=== PATIENT | male | born 1955 | race Caucasian/White ===

== ENCOUNTER 2017-09-10 17:57 | Inpatient (IN) | payer SELFPAY ==
[2017-09-10 18:59] LABS: #Lymphocytes 0.5 thou/uL (1.20-3.40); #Monocytes 0.8 thou/uL (0.11-0.59); #Neutrophils 15.5 thou/uL (1.40-6.50); %Basophils 0.1 % (0.0-1.0); %Eosinophils 0.2 % (0.0-10.0); %Lymphocytes 3.2 % (21.0-51.0); %Monocytes 4.9 % (0.0-10.0); %Neutrophils 91.6 % (42.0-75.0); Hemoglobin 11.5 g/dL (14.0-18.0); Mean Corpuscular HGB CONC 35.6 g/dL (32.0-36.0); Mean Corpuscular Hemoglobin 33.7 pg (27.0-31.0); Mean Corpuscular Volume 94.7 fl (80.0-94.0); Platelet Count 173 thou/uL (130-400); RBC Distribution Width 10.6 % (11.5-14.5)
[2017-09-10 19:20] LABS: ALT (SGPT) 15 U/L (8-55); AST (SGOT) 19 U/L (5-34); Albumin 4.6 g/dL (3.4-4.8); Alkaline Phosphatase 53 U/L (40-150); Anion Gap 21 mmol/L (10-20); BUN (Urea Nitrogen) 21 mg/dL (8.4-25.7); Bilirubin, Total 1.1 mg/dL (0.2-1.2); Calc. Creatinine Clearance 0 mL/min (70-130); Calcium 9.3 mg/dL (7.8-10.44); Carbon Dioxide 18 mmol/L (23-31); Chloride 103 mmol/L (98-107); Estimated GFR-MDRD 61; Globulin 3.2 g/dL (2.4-3.5); Glucose 319 mg/dL (80-115); Potassium 4.2 mmol/L (3.5-5.1); Protein, Total 7.8 g/dL (5.8-8.1); Sodium 138 mmol/L (136-145)
[2017-09-10] MEDS ORDERED: Thiamine HCl 200 MG/2 ML VIAL SLOW IVP SCH (20:00)
[2017-09-10] MEDS ORDERED: Dextrose 5% in Water 1,000 ML IV PRN (20:10)
[2017-09-10] MEDS ORDERED: Dextrose 50% Abboject 50 ML SYRINGE SLOW IVP PRN (20:10)
[2017-09-10] MEDS ORDERED: cefTRIAXone Sodium 1 MG in Syringe 0 ML IVPB SCH (20:15)
[2017-09-10 20:19] LABS: Lactic Acid 1.4 mmol/L (0.5-2.2)
[2017-09-10] MEDS ORDERED: Lorazepam 2 MG/ML VIAL SLOW IVP PRN (20:32)
[2017-09-10 20:37] LABS: Hemoglobin 10.9 g/dL (14.0-18.0)
[2017-09-10] MEDS ORDERED: Promethazine HCl 25 MG/ML VIAL ONE (20:45)
[2017-09-10] MEDS ORDERED: Insulin Detemir 100 UNITS/ML 15 UNITS SC SCH ×2 (21:00)
--- NOTE | 2017-09-10 21:01 | RAD ---
SINGLE VIEW OF THE CHEST: Comparison: 04-30-12 History: Cough ground emesis and weakness. FINDINGS: Single view of the chest shows a normal sized cardiomediastinal silhouette. There is no evidence of c onsolidation, mass, or pleural effusion. The bones are unremarkable. IMPRESSION: No evidence of acute cardiopulmonary disease. POS: [facility]
--- NOTE | 2017-09-10 21:48 | HP ---
PRIMARY CARE PHYSICIAN: This patient has no PCP. CHIEF COMPLAINT: Weakness. HISTORY OF PRESENT ILLNESS: The patient is a very pleasant 62-year-old male, who was transferred from another hospital for possible GI bleed. The history was obtained mildly from the patient and rest from the patient's family. The patient's family stated that the patient has been feeling weak for the past day and had severe nausea, vomiting, and about six bouts of diarrhea yesterday. The patient also stated that he ran out of his insulin Lantus for the past two days. The patient stated that he has been taking his short-acting insulin; however, has not been taking his long-acting insulin. The patient denies eating out anywhere. He states that he takes Aleve at times; however, he has not taken any recently. The patient also was found to have coffee ground emesis , this is per documentation from the ER notes at the outside hospital. The patient does have a history of alcohol use, drinks about 6-7 beers daily. He denies any withdrawal ever in the past. Denies any known diagnosis of cirrhosis or any liver complications due to his drinking. The patient denies any fevers or chills; however, just has been feeling really weak all over. Denies any sick contacts either. PAST MEDICAL HISTORY: He is just a type 2 diabetic. MEDICATIONS: The patient takes Lantus per family, does not know the dose and takes Humalog t.i.d. with meals. PAST SURGICAL HISTORY: Denies any past surgical history. FAMILY HISTORY: Denies any family history of heart disease; however, does have family history of diabetes. SOCIAL HISTORY: The patient does not smoke. However, he does drink 6-7 beers a day; however, he says sometimes he skips days. Denies any drinking of hard liquor. REVIEW OF SYSTEMS: The following complete review of systems was negative, unless otherwise mentioned in the HPI or below: Constitutional: Weight loss or gain, ability to conduct usual activities. Skin: Rash, itching. Eyes: Double vision, pain. ENT/Mouth: Nose bleeding, neck stiffness, pain, tenderness. Cardiovascular: Palpitations, dyspnea on exertion, orthopnea. Respiratory: Shortness of breath, wheezing, cough, hemoptysis, fever or night sweats. Gastrointestinal: Poor appetite, abdominal pain, heartburn, nausea, vomiting, constipation, or diarrhea. Genitourinary: Urgency, frequency, dysuria, nocturia. Musculoskeletal: Pain, swelling. Neurologic/Psychiatric: Anxiety, depression. Allergy/Immunologic: Skin rash, bleeding tendency. All negative except for the ones mentioned in the HPI. PHYSICAL EXAMINATION: VITAL SIGNS: The patient is afebrile at 98.8, heart rate is in the 80s, blood pressure is 132/60, respirations are 14, and 98% on room air. GENERAL: He is awake, alert; however, currently is resting, easily arousable, oriented x3. CARDIOVASCULAR: S1, S2 present. No murmurs, rubs or gallops. LUNGS: Clear to auscultation. No rhonchi or wheezes noted. ABDOMEN: Soft, nontender. Bowel sounds are present x2. EXTREMITIES: No edema. HEENT: Normocephalic, atraumatic. NECK: No lymphadenopathy noted. LABORATORY DATA: Labs are as the following: Upon reviewing the patient's records from the outside hospital indicated that the patient had a leukocytosis of 18,000, here he has leukocytosis of 17,000. Hemoglobin is stable at 11.5, hematocrit of 32.3, platelets of 173. His chemistry includes sodium of 130, potassium of 4.2, bicarbonate of 18, and anion gap of 21. His lactic acid at the other hospital was 4.3; however, lactic acid here is 1.4. Sugar of 619 and creatinine of 1.2. His bilirubin here at our hospital is normal. LFTs are normal. His urine was negative. Chest x-ray is pending. ASSESSMENT AND PLAN: The patient is a very pleasant 62-year-old male, who initially presents to the hospital with nausea, vomiting, and diarrhea. 1. Nausea, vomiting and diarrhea. I was told per ER that the patient did have coffee ground emesis; however, this could be secondary to gastritis or ulcers. However, at this time given his history of alcohol use, we will put the patient on Protonix b.i.d. I do not think he needs octreotide at this time since his hemoglobin and hematocrit has been stable. We will consult GI for further evaluation. We will trend his hemoglobin and hematocrit every 6 hours. We will type and screen him just in case if he requires transfusion. Hemodynamically, the patient is stable. 2. Diabetes type 2. Currently, sugar is 319. The patient received a liter in the ER. We will continue the patient's home dose of Lantus and also put the patient on sliding scale. Beta hydroxybutyric acid is still pending. We will continue to monitor the patient closely. 3. Leukocytosis. The patient does not have any abdominal pain now; however, he did have significant amount of nausea, vomiting, and diarrhea, about 6 bouts of diarrhea and significant amount of nausea and vomiting. We will check stool studies for Clostridium difficile and leukocyte. I do not see anything on the urine. Chest x-ray is pending; however, given that the patient does appear a little ill, we will just give him a dose of Cipro and Flagyl for now and continue to monitor the patient closely. This most likely is viral in nature; however, we will just be on a precautionary side. 4. Alcohol use. We will put the patient on alcohol withdrawal protocol with Ativan p.r.n. as needed. The patient's last drink was 11:30 last night. We will put the patient on thiamine and folic acid and continue to monitor the patient. 5. Deep venous thrombosis prophylaxis. We will put the patient on sequential compression devices. MTDD
[2017-09-10] MEDS: Sodium Chloride 0.9% 1,000 ML IV SCH (22:36)
[2017-09-10] MEDS: metroNIDAZOLE 500 MG in Premix Bag 1 BAG IVPB SCH (22:37)
[2017-09-10] MEDS: Pantoprazole 40 MG VIAL IVP SCH (22:37)
[2017-09-10] MEDS: HumaLOG 300 UNITS/3 ML VIAL SC PRN (23:19)
[2017-09-10] MEDS ORDERED: Ondansetron HCl/PF 4 MG/2 ML Vial IVP PRN (23:38)
[2017-09-10] MEDS: Ondansetron ODT 4 MG TAB SL PRN (23:50)
[2017-09-10] MEDS: Ciprofloxacin Lactate/D5W 200 MG in Premix Bag 1 BAG IVPB SCH (23:54)
[2017-09-10] MEDS: cefTRIAXone\\ROCEPHIN 1 GM, Syringe 0.4 ML in Sterile Water 9.6 ML SLOW IVP SCH (23:54)
[2017-09-11] MEDS: metroNIDAZOLE 500 MG in Premix Bag 1 BAG IVPB SCH ×3 (05:21→21:49)
[2017-09-11 05:53] LABS: Anion Gap 20 mmol/L (10-20); BUN (Urea Nitrogen) 18 mg/dL (8.4-25.7); Calc. Creatinine Clearance 46 mL/min (70-130); Calcium 8.9 mg/dL (7.8-10.44); Carbon Dioxide 15 mmol/L (23-31); Chloride 109 mmol/L (98-107); Estimated GFR-MDRD 55; Glucose 296 mg/dL (80-115); Potassium 4.3 mmol/L (3.5-5.1); Sodium 140 mmol/L (136-145)
[2017-09-11] MEDS: Sodium Chloride 0.9% 1,000 ML IV SCH ×2 (05:53→10:20)
[2017-09-11] MEDS ORDERED: Sodium Chloride 0.9% 10 ML ONE (08:05)
[2017-09-11] MEDS: HumaLOG 300 UNITS/3 ML VIAL SC PRN ×2 (08:36→19:08)
[2017-09-11] MEDS: Pantoprazole 40 MG VIAL IVP SCH ×2 (08:36→21:48)
[2017-09-11] MEDS: Folic Acid 1 MG TAB PO SCH (08:36)
[2017-09-11] MEDS: Ondansetron ODT 4 MG TAB SL PRN ×2 (09:44→15:55)
[2017-09-11] MEDS: Ciprofloxacin Lactate/D5W 200 MG in Premix Bag 1 BAG IVPB SCH (10:11)
[2017-09-11 11:04] LABS: Hemoglobin 10.9 g/dL (14.0-18.0); Platelet Count 188 thou/uL (130-400)
[2017-09-11 11:56] LABS: Hemoglobin 10.5 g/dL (14.0-18.0)
[2017-09-11] MEDS: Insulin Detemir 100 UNITS/ML 10 UNITS in Pre-Filled Syringe 1 EACH SC SCH (13:37)
--- NOTE | 2017-09-11 14:43 | CON ---
DATE OF CONSULTATION: 09/11/2017 GASTROINTESTINAL INPATIENT CONSULTATION NOTE REQUESTING PHYSICIAN: Kalina Kingsley M.D. REASON FOR CONSULTATION: Upper GI bleeding. HISTORY OF PRESENT ILLNESS: Costa Alcantar is a 62-year-old man with a history of diabetes on insuli n. He was admitted to the hospital yesterday with what appears to be diabetic ketoacidosis and an ep isode of coffee-ground emesis. The patient ran out of his Lantus, but he did continue his Humalog in sulin. However, for the past couple of days, he started having fairly acute nausea, vomiting, and di arrhea. His nausea remains constant. He did a whole lot of vomiting yesterday, not large volume, bu t repeated episodes. He has also been having diarrhea with multiple loose though brown bowel movemen ts per day. He denies any melena or hematochezia, but yesterday he did have a single episode of coff ee-ground emesis. There was no ness hematemesis. He has remained hemodynamically stable. He is cu rrently being treated with fluid and electrolyte placement as appropriate. Notably, he takes Aleve o n an as needed basis, but none recently. He will have 6-7 beers per day. He is not on any acid supp ression. He has never undergone EGD. Upon presentation, hemoglobin was 11.5 and this drifted down a little bit to 10.5 today. He does have a leukocytosis to 17 as well as an anion gap of 20, and elev ated beta hydroxybutyrate level. REVIEW OF SYSTEMS: Full review of systems including constitutional, head, eyes, ears, nose, throat, GI, , cardiovascular, respiratory, musculoskeletal, and neurologic systems is negative except as no familia in the HPI. PAST MEDICAL HISTORY: Diabetes type 2. OUTPATIENT MEDICATIONS: Lantus insulin daily, Humalog insulin t.i.d. with meals. INPATIENT MEDICATIONS: IV ceftriaxone, folic acid 1 mg daily, insulin sliding scale, detemir insulin 10 units daily, metronidazole 500 mg IV q.8 h. was started earlier today, Zofran 4 mg IV p.r.n., and Protonix 40 mg IV q.12 hours. SOCIAL HISTORY: No smoking. He will have 6-7 beers per day. FAMILY HISTORY: Noncontributory. PHYSICAL EXAMINATION: VITAL SIGNS: Temperature 98.2, pulse 86, blood pressure 145/74, 95% oxygen saturation on room air. GENERAL: Frail 62-year-old man lying in bed in mild distress from nausea. No respiratory distress. SKIN: No jaundice, no rashes were palpable. EYES: No scleral icterus. Extraocular movements intact. ENT: Mucous membranes moist, no oral lesions. LYMPH: No submandibular, supraclavicular lymphadenopathy. THYROID: Nontender to palpation. HEART: Regular rate and rhythm. LUNGS: Clear to auscultation bilaterally. ABDOMEN: Flat, bowel sounds present, soft, some mild diffuse tenderness to palpation, but no guardin g, rebound tenderness. EXTREMITIES: No peripheral edema. VESSELS: Radial pulses 2+ bilaterally. NEUROLOGICAL: Cranial nerves II-XII intact bilaterally. No focal deficits. LABORATORY STUDIES: WBC 17, hemoglobin initially 11.5 now 10.5, MCV elevated to 94.7, platelets 188. BUN 18, creatinine 1.31. Sodium 140, potassium 4.3, glucose 244. Lactic acid 1.4. Beta hydroxybu tyrate elevated to 5.68. Anion gap is 20. LFTs normal with total bilirubin 1.1, alkaline phosphatas e 53, AST 19, ALT 15, albumin 4.6. I do not see a lipase level. IMAGING STUDIES: Chest x-ray showed no acute processes. ASSESSMENT AND PLAN: 1. Coffee-ground emesis, single episode. 2. Nausea and vomiting. 3. Acute diarrhea. 4. Diabetic ketoacidosis. 5. Anemia. The patient had a single episode of coffee-ground emesis with minimal decline in hemoglo bin since presentation and no evidence of lower gastrointestinal bleeding. Suspect he likely had a s mall Raven-Velez tear, possibly erosive esophagitis underlying his coffee ground emesis. The nause a and vomiting is likely related to his diabetic ketoacidosis, but he may have acute gastroenteritis which is set all this off. I note the negative Clostridium difficile will go ahead and order further stool studies including culture for Campylobacter, E. coli and O&P. We will order a lipase level be drawn with morning labs tomorrow. We will schedule him for diagnostic EGD tomorrow as well. In the meantime, continue with supportive care as you are doing. Continue the PPI.
[2017-09-11 18:21] LABS: Hemoglobin 10.4 g/dL (14.0-18.0)
--- NOTE | 2017-09-11 18:34 | PDOC.PN ---
- Subjective Encounter Start Date: 09/11/17 Encounter Start Time: 11:00 Patient seen and examined. No new complaints. No overnight events. NPO. Had diarrhea last night. - Objective MAR Reviewed: Yes Vital Signs & Weight: Vital Signs (12 hours) Temp Pulse Resp BP BP BP Pulse Ox 09/11/17 16:35 97.9 F 87 18 164/79 H 96 09/11/17 16:00 164/79 H 09/11/17 12:00 145/74 H 09/11/17 11:48 98.2 F 86 17 145/74 H 95 09/11/17 08:00 98.6 F 97 14 149/74 H 149/74 H 96 Weight Weight 127 lb 3.2 oz I&O: 09/10/17 09/11/17 09/12/17 06:59 06:59 06:59 Intake Total 800 Output Total 10 Balance 790 Result Diagrams: 09/11/17 17:57 09/11/17 04:52 Additional Labs: Accuchecks 09/11/17 09/11/17 09/11/17 17:10 12:25 05:32 POC Glucose 178 H 244 H 282 H 09/10/17 22:58 POC Glucose 373 H Phys Exam - Physical Examination Constitutional: NAD Neck: no nodes, no JVD Respiratory: no wheezing, no rales, no rhonchi, clear to auscultation bilateral Cardiovascular: RRR, no rub no heaves/pulsations Gastrointestinal: soft, non-tender, no distention, positive bowel sounds Musculoskeletal: no edema Neurological: non-focal, normal sensation, moves all 4 limbs Psychiatric: normal affect, A&O x 3 Skin: no rash Dx/Plan - Plan DVT proph w/SCDs IMPRESSION: 1. UGI bleeding 2. DKA/DM2 3. Acute Diarrhea 4. Anemia due to acute GI blood loss 5. Leucocytosis 6. Chronic Alcoholism PLAN: * Cont IVF * Insulin sliding scale * AM labs * Monitor HH * Await GI input * Cont Ceftriaxone/Flagyl * DC Cipro * Transfer to medical * Ketone in AM * Cont ASE protocol Review of Systems - Review of Systems Constitutional: negative: fever, chills, sweats, weakness, malaise, other Respiratory: negative: Cough, Dry, Shortness of Breath, Hemoptysis, SOB with Excertion, Pleuritic Pain, Sputum, Wheezing Cardiovascular: negative: chest pain, palpitations, orthopnea, paroxysmal nocturnal dyspnea, edema, light headedness, other - Medications/Allergies Allergies/Adverse Reactions: Allergies Allergy/AdvReac Type Severity Reaction Status Date / Time No Known Allergies Allergy Unverified 09/10/17 19:52 Medications: Current Medications Dextrose/Water (Dextrose 50%) 25 gm SLOW IVP PRN PRN PRN Reason: Hypoglycemia Folic Acid (Folvite) 1 mg PO DAILY [facility] Last Admin: 09/11/17 08:36 Dose: 1 mg Glucagon (Glucagon) 1 mg IM PRN PRN PRN Reason: Hypoglycemia Dextrose/Water (D5w) 1,000 mls @ 0 mls/hr IV .Q0M PRN; As Directed PRN Reason: Hypoglycemia Metronidazole 500 mg/ Device 100 mls @ 100 mls/hr IVPB Q8HR [facility] Last Admin: 09/11/17 13:37 Dose: 100 mls Ceftriaxone Sodium 1 gm/ (Syringe 0.4 ml/ Sterile Water) 10 mls @ 120 mls/hr SLOW IVP 2100 [facility] Last Admin: 09/10/17 23:54 Dose: 10 mls Insulin Detemir 10 units/ (Miscellaneous Medication) 0.1 mls @ 0 mls/hr SC QAM [facility] Last Admin: 09/11/17 13:37 Dose: 0.1 mls Sodium Chloride (1/2 Normal Saline) 1,000 mls @ 150 mls/hr IV .Q6H40M [facility] Insulin Human Lispro (Humalog) 0 units SC .MILD SLIDING SCALE PRN PRN Reason: Mild Correctional Scale Last Admin: 09/10/17 23:19 Dose: 6 units Lorazepam (Ativan) 1 mg SLOW IVP Q4H PRN PRN Reason: Alcohol Withdrawal Ondansetron HCl (Zofran Odt) 4 mg SL Q4H PRN PRN Reason: Nausea/Vomiting Last Admin: 09/11/17 15:55 Dose: 4 mg Pantoprazole Sodium (Protonix) 40 mg IVP Q12HR [facility] Last Admin: 09/11/17 08:36 Dose: 40 mg Sodium Chloride (Flush - Normal Saline) 10 ml IVF Q12HR [facility] Sodium Chloride (Flush - Normal Saline) 10 ml IVF PRN PRN PRN Reason: Saline Flush Thiamine HCl (Thiamine) 100 mg PO DAILY [facility] Last Admin: 09/11/17 08:36 Dose: 100 mg
[2017-09-11] MEDS ORDERED: Lorazepam 1 MG TAB PO PRN (18:37)
[2017-09-11] MEDS: Sodium Chloride 0.45% 1,000 ML IV SCH (19:05)
[2017-09-11] MEDS: cefTRIAXone\\ROCEPHIN 1 GM, Syringe 0.4 ML in Sterile Water 9.6 ML SLOW IVP SCH (21:49)
[2017-09-12] MEDS: Sodium Chloride 0.45% 1,000 ML IV SCH (02:41)
[2017-09-12 05:09] LABS: #Lymphocytes 1.9 thou/uL (1.20-3.40); #Monocytes 0.6 thou/uL (0.11-0.59); #Neutrophils 6.2 thou/uL (1.40-6.50); %Basophils 0.3 % (0.0-1.0); %Eosinophils 0.4 % (0.0-10.0); %Lymphocytes 21.7 % (21.0-51.0); %Monocytes 6.4 % (0.0-10.0); %Neutrophils 71.2 % (42.0-75.0); Hemoglobin 9.8 g/dL (14.0-18.0); Mean Corpuscular Hemoglobin 33.7 pg (27.0-31.0); Mean Corpuscular Volume 96.3 fl (80.0-94.0); Platelet Count 134 thou/uL (130-400); RBC Distribution Width 10.7 % (11.5-14.5); Red Blood Cell (RBC) Count 2.91 mill/uL (4.70-6.10); White Blood Cell (WBC) Count 8.8 thou/uL (4.8-10.8)
[2017-09-12] MEDS: metroNIDAZOLE 500 MG in Premix Bag 1 BAG IVPB SCH ×2 (05:31→14:09)
[2017-09-12 05:42] LABS: Albumin 3.6 g/dL (3.4-4.8); Anion Gap 10 mmol/L (10-20); BUN (Urea Nitrogen) 8 mg/dL (8.4-25.7); BUN/Creatinine Ratio 9.64; Calc. Creatinine Clearance 73 mL/min (70-130); Calcium 8.1 mg/dL (7.8-10.44); Carbon Dioxide 25 mmol/L (23-31); Chloride 107 mmol/L (98-107); Estimated GFR-MDRD Greater than 90; Glucose 107 mg/dL (80-115); Lipase 14 U/L (8-78); Magnesium 1.9 mg/dL (1.6-2.6); Sodium 139 mmol/L (136-145)
[2017-09-12 05:47] LABS: Phosphorus 1.6 mg/dL (2.3-4.7); Potassium 2.9 mmol/L (3.5-5.1)
[2017-09-12] MEDS ORDERED: Potassium Chloride 40 MEQ in Premix Bag 1 BAG IVPB SCH (06:00)
[2017-09-12] MEDS ORDERED: K-Phos Neutral 250 MG TAB PO SCH (06:00)
[2017-09-12] MEDS ORDERED: Potassium Phosphate 30 MMOL in Sodium Chloride 0.9% 500 ML IVPB SCH (06:30)
[2017-09-12] MEDS ORDERED: Potassium Chloride 20 MEQ TAB PO SCH ×2 (06:45→17:00)
[2017-09-12] MEDS: 1/2 NS w/KCL 20 mEq 1,000 ML IV SCH ×3 (07:59→23:07)
[2017-09-12 09:12] VITALS: BMI 18.2
[2017-09-12] MEDS ORDERED: Promethazine HCl 25 MG/ML VIAL SLOW IVP PRN (12:32)
[2017-09-12] MEDS ORDERED: Promethazine HCl 25 MG/ML VIAL IM PRN (12:32)
[2017-09-12] MEDS ORDERED: Ondansetron HCl/PF 4 MG/2 ML Vial IVP PRN (12:32)
--- NOTE | 2017-09-12 12:54 | OP ---
DATE OF PROCEDURE: 09/12/2017 SURGEON: Raz Johnson M.D. PREOPERATIVE DIAGNOSIS: Hematemesis. POSTOPERATIVE DIAGNOSES: 1. LA grade C reflux esophagitis. 2. No evidence of candidiasis. 3. Normal stomach except for mild portal hypertensive gastropathy. 4. Normal duodenum. 5. Suspect nausea and vomiting probably began as part of the patient's diabetic ketoacidosis. RECOMMENDATIONS: Continue IV PPI for 24 hours and then change to p.o. I recommend alcohol cessation . ANESTHESIA: TIVA. PROCEDURE IN DETAIL: After the patient was informed of the risks, benefits, possible complications o f endoscopy including perforation, bleeding, reactions to medication and aspiration, informed consent was obtained. The patient was brought to the endoscopy suite where he was sedated in gradual fashio n. Once he was comfortable a bite block was placed in the incisural orifice. It was advanced in the esophagus, stomach and second and third portion of the duodenum and slowly removed. The esophagus w as notable for erosions in the distal esophagus and some continuous hematogenic injury, severe reflux esophagitis. There was no evidence of deep ulcers or lesions to suggest viral esophagitis. There w as no evidence of plaque to suggest Alejandra. The stomach was entered and found to have a slight scal y mucosa consistent with mild portal hypertensive gastropathy. Retroflexed views were normal. There was no evidence of varices in the esophagus or stomach. There is no evidence of Raven-Velez tear. The duodenum was normal to the second and third portion. The scope was then removed. The patient tolerated the procedure well, no complication.
[2017-09-12] MEDS: K-Phos Neutral 250 MG TAB PO SCH ×4 (14:06→21:45)
[2017-09-12] MEDS: Insulin Detemir 100 UNITS/ML 10 UNITS in Pre-Filled Syringe 1 EACH SC SCH (14:07)
[2017-09-12] MEDS: Folic Acid 1 MG TAB PO SCH (14:07)
[2017-09-12] MEDS: Pantoprazole 40 MG VIAL IVP SCH ×2 (14:08→21:45)
[2017-09-12] MEDS ORDERED: Mag-Al 1200 mg/1200 mg/30 ML UDCUP PO PRN (15:22)
[2017-09-12] MEDS ORDERED: Calcium Carbonate 500 MG ChewTAB PO PRN (15:22)
[2017-09-12] MEDS ORDERED: PROPOFOL 200 MG/20 ML VIAL ONE (16:26)
[2017-09-12] MEDS ORDERED: Lidocaine 1% PF 5 ML VIAL ONE (16:26)
--- NOTE | 2017-09-12 17:27 | PDOC.PN ---
- Subjective Encounter Start Date: 09/12/17 Encounter Start Time: 17:24 Patient seen and examined. No new complaints. No overnight events. s/p EGD. No new GI bleeding - Objective MAR Reviewed: Yes Vital Signs & Weight: Vital Signs (12 hours) Temp Pulse Resp BP BP Pulse Ox 09/12/17 16:00 97.7 F 71 18 152/79 H 152/79 H 96 09/12/17 08:00 98 F 72 16 156/77 H 95 09/12/17 07:40 98 F 72 16 156/77 H 98 Weight Admit Weight 130 lb 9.6 oz Weight 127 lb 3.2 oz I&O: 09/11/17 09/12/17 09/13/17 06:59 06:59 06:59 Intake Total 800 4082 Output Total 10 Balance 790 4082 Result Diagrams: 09/12/17 04:48 09/12/17 04:48 Additional Labs: Accuchecks 09/12/17 09/12/17 09/12/17 14:12 05:32 02:12 POC Glucose 171 H 102 170 H 09/11/17 09/11/17 20:37 17:10 POC Glucose 267 H 178 H Phys Exam - Physical Examination Constitutional: NAD Respiratory: no wheezing, no rhonchi Cardiovascular: RRR, no rub Gastrointestinal: soft, non-tender, positive bowel sounds Musculoskeletal: no edema Dx/Plan - Plan DVT proph w/SCDs IMPRESSION: 1. UGI bleeding - EGD c/w Esophagitis grade C 2. DKA - improving 3. Acute Diarrhea - No new episode. Cdiff negative 4. Anemia due to acute GI blood loss 5. Leucocytosis 6. Chronic Alcoholism / DM2 / Electrolyte abn (hypokalemia/hypophosphatemia) PLAN: * Change IVF to 1/2 NS with KCL * Cont Insulin sliding scale * AM labs * GI following * DC Ceftriaxone/Flagyl * Cont ASE protocol * Cont IV PPI for 24 hr then change to PO per GI * Replace electrolytes Microbiology 09/10/17 23:15 Stool Stool Lactoferrin - Final 09/10/17 23:15 Stool C. difficile [facility] Antigen & Toxins - Final Laboratory Tests 09/10/17 09/12/17 09/12/17 18:44 04:48 04:48 Phosphorus 1.6 L B-Hydroxybutyrate 5.68 H 0.45 H Review of Systems - Review of Systems Respiratory: negative: Cough, Dry, Shortness of Breath, Hemoptysis, SOB with Excertion, Pleuritic Pain, Sputum, Wheezing Cardiovascular: negative: chest pain, palpitations, orthopnea, paroxysmal nocturnal dyspnea, edema, light headedness, other - Medications/Allergies Allergies/Adverse Reactions: Allergies Allergy/AdvReac Type Severity Reaction Status Date / Time No Known Allergies Allergy Unverified 09/10/17 19:52 Medications: Current Medications Al Hydroxide/Mg Hydroxide (Maalox) 30 ml PO Q6H PRN PRN Reason: Heartburn or Indigestion Calcium Carbonate (Tums) 1,000 mg PO Q4H PRN PRN Reason: Heartburn or Indigestion Dextrose/Water (Dextrose 50%) 25 gm SLOW IVP PRN PRN PRN Reason: Hypoglycemia Folic Acid (Folvite) 1 mg PO DAILY [facility] Last Admin: 09/12/17 14:07 Dose: Not Given Glucagon (Glucagon) 1 mg IM PRN PRN PRN Reason: Hypoglycemia Dextrose/Water (D5w) 1,000 mls @ 0 mls/hr IV .Q0M PRN; As Directed PRN Reason: Hypoglycemia Insulin Detemir 10 units/ (Miscellaneous Medication) 0.1 mls @ 0 mls/[facility] Last Admin: 09/12/17 14:07 Dose: Not Given Potassium Chloride/Sodium Chloride (1/2 Ns W/Kcl 20 Meq) 1,000 mls @ 125 mls/ hr IV .Q8H [facility] Last Admin: 09/12/17 14:08 Dose: Not Given Insulin Human Lispro (Humalog) 0 units SC .MILD SLIDING SCALE PRN PRN Reason: Mild Correctional Scale Last Admin: 09/11/17 19:08 Dose: 2 units Lorazepam (Ativan) 1 mg PO Q4H PRN PRN Reason: ASE >=9 Ondansetron HCl (Zofran Odt) 4 mg SL Q4H PRN PRN Reason: Nausea/Vomiting Last Admin: 09/11/17 15:55 Dose: 4 mg Pantoprazole Sodium (Protonix) 40 mg IVP Q12HR [facility] Last Admin: 09/12/17 14:08 Dose: Not Given Phosphorus (Kphos Neutral) 500 mg PO QID[facility] Last Admin: 09/12/17 16:17 Dose: 500 mg Sodium Chloride (Flush - Normal Saline) 10 ml IVF Q12HR [facility] Last Admin: 09/12/17 14:08 Dose: Not Given Sodium Chloride (Flush - Normal Saline) 10 ml IVF PRN PRN PRN Reason: Saline Flush Thiamine HCl (Thiamine) 100 mg PO DAILY [facility] Last Admin: 09/12/17 14:08 Dose: Not Given
[2017-09-12] MEDS: HumaLOG 300 UNITS/3 ML VIAL SC PRN (18:32)
[2017-09-12] MEDS ORDERED: Insulin Detemir 100 UNITS/ML 20 UNITS in Pre-Filled Syringe SC SCH (21:00)
[2017-09-13] MEDS: 1/2 NS w/KCL 20 mEq 1,000 ML IV SCH ×2 (01:35→09:46)
[2017-09-13 04:58] LABS: #Eosinphils 0.1 thou/uL (0.0-0.7); #Lymphocytes 2.1 thou/uL (1.20-3.40); #Monocytes 0.5 thou/uL (0.11-0.59); %Basophils 0.4 % (0.0-1.0); %Eosinophils 1.8 % (0.0-10.0); %Monocytes 6.6 % (0.0-10.0); %Neutrophils 64.2 % (42.0-75.0); Hemoglobin 11.5 g/dL (14.0-18.0); Mean Corpuscular Hemoglobin 33.5 pg (27.0-31.0); Mean Corpuscular Volume 95.8 fl (80.0-94.0); Mean Platelet Volume 7.3 fL (7.4-10.4); Platelet Count 144 thou/uL (130-400); RBC Distribution Width 10.4 % (11.5-14.5); Red Blood Cell (RBC) Count 3.42 mill/uL (4.70-6.10); White Blood Cell (WBC) Count 7.7 thou/uL (4.8-10.8)
[2017-09-13 05:16] LABS: Albumin 4.1 g/dL (3.4-4.8); Anion Gap 10 mmol/L (10-20); BUN (Urea Nitrogen) 7 mg/dL (8.4-25.7); BUN/Creatinine Ratio 8.24; Calc. Creatinine Clearance 72 mL/min (70-130); Calcium 8.6 mg/dL (7.8-10.44); Carbon Dioxide 31 mmol/L (23-31); Chloride 102 mmol/L (98-107); Estimated GFR-MDRD Greater than 90; Glucose 101 mg/dL (80-115); Magnesium 1.9 mg/dL (1.6-2.6); Phosphorus 3.4 mg/dL (2.3-4.7); Potassium 3.1 mmol/L (3.5-5.1); Sodium 140 mmol/L (136-145)
[2017-09-13] MEDS ORDERED: Potassium Chloride 20 MEQ TAB PO SCH ×2 (08:00→08:30)
[2017-09-13] MEDS: Folic Acid 1 MG TAB PO SCH (08:33)
[2017-09-13] MEDS: K-Phos Neutral 250 MG TAB PO SCH ×2 (08:34→12:16)
[2017-09-13] MEDS: Pantoprazole 40 MG VIAL IVP SCH (08:35)
[2017-09-13] MEDS: HumaLOG 300 UNITS/3 ML VIAL SC PRN (12:16)
[2017-09-13 14:17] VITALS: BP 153/75; TEMP 97.8
--- NOTE | 2017-09-13 14:24 | PRG ---
DATE OF SERVICE: 09/13/2017 GASTROINTESTINAL INPATIENT DAILY PROGRESS NOTE SUBJECTIVE: Mr. Alcantar underwent EGD yesterday. This showed findings of LA grade C erosive esopha gitis. No evidence of varices, ulceration or Raven-Velez tear. The patient is feeling a lot natalia r today. He tolerated breakfast well and is about to eat lunch. No further overt evidence of bleedi ng. His anion gap is closed. PHYSICAL EXAMINATION: VITAL SIGNS: Temperature 97.9, pulse 69, blood pressure 162/88, 98% oxygen saturation on room air. GENERAL: No acute distress. HEART: Regular rate and rhythm. LUNGS: Clear to auscultation bilaterally. ABDOMEN: Soft and nontender. EXTREMITIES: No peripheral edema. LABORATORY STUDIES: Sodium 140, potassium 3.1, BUN 7, creatinine 0.85, glucose 192. Beta hydroxybut yrate down to 0.45, hemoglobin 11.5, WBC 7.7, platelets 144. ASSESSMENT AND PLAN: 1. Erosive esophagitis. 2. Hematemesis, resolved. 3. Nausea and vomiting, improved. 4. Diabetic ketoacidosis, resolved. The patient's severe esophagitis is likely a consequence of his repeated recent nausea and vomiting, also secondary to chronic reflux and alcohol use. I again advi sed him to cut back or completely avoid all alcohol. I would recommend that he be on twice daily ora l proton pump inhibitor for at least the next month. We will have him follow up in clinic with me af ter 1 month and depending on how he is doing, likely back off to once a day on the acid suppression. GI will sign off, but please call back anytime with questions or concerns.
[2017-09-13 15:28] LABS: Anion Gap 10 mmol/L (10-20); BUN (Urea Nitrogen) 5 mg/dL (8.4-25.7); Calc. Creatinine Clearance 77 mL/min (70-130); Calcium 8.7 mg/dL (7.8-10.44); Carbon Dioxide 29 mmol/L (23-31); Chloride 102 mmol/L (98-107); Estimated GFR-MDRD Greater than 90; Glucose 156 mg/dL (80-115); Potassium 3.6 mmol/L (3.5-5.1); Sodium 137 mmol/L (136-145)
--- NOTE | 2017-09-13 23:20 | DIS ---
DATE OF ADMISSION: 09/10/2017 DATE OF DISCHARGE: 09/13/2017 DISCHARGE DIAGNOSES: As followin. Upper gastrointestinal bleed. 2. Diabetic ketoacidosis. 3. Acute diarrhea. 4. Anemia. 5. Leukocytosis. 6. Alcohol abuse. HOSPITAL COURSE: The patient is a very pleasant 62-year-old male who was transferred via the [facility] with possible upper gastrointestinal bleed. The patient stated that he had several bouts of nausea , vomiting, and diarrhea for 1 day. The patient also states that he had ran out of his Lantus for e past couple of days. The patient was found to be hyperglycemic and at that time DKA protocol was i nitiated. The patient's H and H continued to remain stable and did not require any blood transfusion s. The patient was noted to have coffee ground emesis at the outside hospital. The patient was init ially put on PPI and underwent an EGD on the , which indicated grade C reflux esophagitis. The p atient initially was put on PPI IV, which was changed to p.o. The patient was able to tolerate meals well prior to discharge. The patient was educated on not to drink to avoid esophagitis again. The p atient verbally understands that. Also, refilled the patient's Lantus and Humalog. The patient stat es that his doctors are undergoing changes and therefore, he has not been able to reach his PCP. The patient was asked to follow up with his PCP and GI. Patient's potassium also was found to be low, a t that time supplements were provided. The patient was encouraged to eat a banana daily or maybe twi ce a day. The patient also was given 10 mEq of potassium for about a week. I wanted to check labs o n him. However, the patient states that he is self-pay and which would cause him a significant amoun t of money. The patient states that he will follow up with his PCP in 1 week. DISCHARGE MEDICATIONS: As the followin. Thiamine. 2. Potassium 10 mEq for a week. 3. Protonix 40 mg b.i.d. 4. Insulin Lantus 20 units at bedtime. 5. Humalog 5-7 units t.i.d. with meals. 6. Folic acid 1 p.o. daily. PHYSICAL EXAMINATION: VITAL SIGNS: Temperature 97.8, Pulse 65, blood pressure 153/75, respirations 18, 99% room air. GENERAL: He is awake, alert, and oriented x3, does not appear in distress. CARDIOVASCULAR: S1, S2 present. No murmurs, rubs or gallops. ABDOMEN: Soft, nontender. Bowel sounds are present x2. EXTREMITIES: No edema. DISCHARGE INSTRUCTIONS: The patient will be discharged home. Follow up with PCP and GI as outelisaen t.
== END 2017-09-13 16:42 | disposition home or self-care (01) | DRG 380 ==
LOC: ERS 17:57 → 2NO 20:09 → T4-B 09-11 20:45
PROVIDERS: ADMIT Internal Medicine; ATTEND Internal Medicine
PROC: 0DJ08ZZ Inspection of Upper Intestinal Tract, Via Natural or Artificial Opening Endoscopic (ICD-10-PCS; principal; 2017-09-12)
DX: K22.11 Ulcer of esophagus with bleeding (principal); E11.10 Type 2 diabetes mellitus with ketoacidosis without coma; T38.3X6A Underdosing of insulin and oral hypoglycemic [antidiabetic] drugs, initial encounter; Z79.4 Long term (current) use of insulin; R19.7 Diarrhea, unspecified; D64.9 Anemia, unspecified; F10.10 Alcohol abuse, uncomplicated; D72.829 Elevated white blood cell count, unspecified; K21.0 Gastro-esophageal reflux disease with esophagitis; Z87.891 Personal history of nicotine dependence
CPT/HCPCS: 36415; 36416; 71045; 80048; 80053; 80069; 82010; 83605; 83630; 83690; 83735; 85014; 85018; 85025; 85049; 86850; 86900; 86901; 87324; 87449; 96365; 96375; A4216; C9113; J0696; J0744; J1815; J2001; J2550; J2704; J3411; J7050; Q0162

== ENCOUNTER 2019-11-03 16:46 | Inpatient (IN) | payer MEDICARE, SELFPAY ==
[2019-11-03] MEDS ORDERED: Metoclopramide HCl 10 MG/2 ML VIAL ONE (17:04)
[2019-11-03] MEDS ORDERED: Pantoprazole 40 MG VIAL ONE (17:28)
[2019-11-03 17:31] LABS: Hemoglobin 9.9 g/dL (14.0-18.0); Mean Corpuscular HGB CONC 34.7 g/dL (32.0-36.0); Mean Corpuscular Hemoglobin 34.5 pg (27.0-31.0); Mean Corpuscular Volume 99.3 fL (78.0-98.0); Mean Platelet Volume 7.4 fL (7.4-10.4); Platelet Count 169 thou/uL (130-400); RBC Distribution Width 10.5 % (11.5-14.5); Red Blood Cell (RBC) Count 2.87 mill/uL (4.70-6.10); White Blood Cell (WBC) Count 20.7 thou/uL (4.8-10.8)
[2019-11-03 17:48] LABS: ALT (SGPT) 14 U/L (8-55); AST (SGOT) 19 U/L (5-34); Albumin 4.2 g/dL (3.4-4.8); Alkaline Phosphatase 56 U/L (40-110); Anion Gap 32 mmol/L (10-20); BUN (Urea Nitrogen) 30 mg/dL (8.4-25.7); Bilirubin, Total 1.1 mg/dL (0.2-1.2); CK (CPK) 134 U/L (30-200); Calc. Creatinine Clearance 0 mL/min (70-130); Calcium 8.5 mg/dL (7.8-10.44); Carbon Dioxide 10 mmol/L (23-31); Chloride 99 mmol/L (98-107); Estimated GFR-MDRD 42; Globulin 2.8 g/dL (2.4-3.5); Glucose 490 mg/dL (80-115); Lipase 10 U/L (8-78); Potassium 4.7 mmol/L (3.5-5.1); Sodium 136 mmol/L (136-145)
[2019-11-03 18:05] LABS: Band 33 % (5-11); Lymphocytes 2 % (21-51); MDiff Complete? YES; Monocytes 2 % (0-10); Neutrophil 62 % (42-75); Platelet Morphology Comment Appears Adequate; Polychromasia SLIGHT = 2-3 cells (100X) (0-2/hpf); Reactive Lymphocytes 1 % (0-10)
[2019-11-03] MEDS ORDERED: Insulin Regular 100 units/100 ml in NS IVPB SCH (18:30)
[2019-11-03] MEDS ORDERED: Promethazine HCl 25 MG/ML VIAL ONE (18:40)
[2019-11-03] MEDS ORDERED: Dextrose 5 %-0.45 % NaCl 1,000 ML IV PRN (18:48)
[2019-11-03] MEDS ORDERED: Guaifenesin DM 100-10/5 ML UDCUP PO PRN (18:48)
[2019-11-03] MEDS ORDERED: Ondansetron PF 4 MG/2 ML Vial IVP PRN (18:48)
[2019-11-03] MEDS ORDERED: Acetaminophen 325 MG TAB PO PRN (18:48)
[2019-11-03] MEDS ORDERED: HYDROcodone/Acetaminophen 5/325 mg Tablet PO PRN (18:48)
[2019-11-03] MEDS ORDERED: HUMULIN R 100 UNITS in Sodium Chloride 0.9% 100 ML IVPB SCH (18:48)
[2019-11-03] MEDS ORDERED: Sodium Chloride 0.9% 1,000 ML IV PRN ×4 (18:48)
[2019-11-03] MEDS ORDERED: CCU Electrolyte Replacement 1 EACH IVPB ONE (18:48)
[2019-11-03] MEDS ORDERED: NS 0.9% w/ 20 MEQ KCL 1,000 ML IV PRN (18:48)
[2019-11-03] MEDS ORDERED: Cefepime 1 GM in Sodium Chloride 0.9% 100 ML IVPB SCH (19:00)
[2019-11-03] MEDS ORDERED: Sodium Chloride 0.9% (PF) 10 ML VIAL FS PRN (19:04)
[2019-11-03] MEDS ORDERED: Potassium Phosphate 9 MMOL in Sodium Chloride 0.9% 100 ML IVPB PRN (19:04)
[2019-11-03] MEDS ORDERED: Potassium Phosphate 12 MMOL in Sodium Chloride 0.9% 250 ML 250 ML IV PRN (19:04)
[2019-11-03] MEDS ORDERED: Potassium Chloride 40 MEQ in Premix Bag 1 BAG IVPB PRN (19:04)
[2019-11-03] MEDS ORDERED: Magnesium Oxide 400 MG TAB PO PRN ×2 (19:04)
[2019-11-03] MEDS ORDERED: Potassium Chloride 40 MEQ in Sodium Chloride 0.9% 250 ML 250 ML IVPB PRN (19:04)
[2019-11-03] MEDS ORDERED: CCU ELECTROLYTE REPLACEMENT PROTOCOL FS PRN (19:04)
[2019-11-03] MEDS ORDERED: PHOS-NAK 1 PKT PACK PO PRN ×2 (19:04)
[2019-11-03] MEDS ORDERED: Potassium Phosphate 15 MMOL in Sodium Chloride 0.9% 250 ML 250 ML IV PRN (19:04)
[2019-11-03] MEDS ORDERED: Potassium Chloride 20 MEQ TAB PO PRN (19:04)
[2019-11-03] MEDS ORDERED: Magnesium 2 GM/50 ML 2 GM in Premix Bag 1 BAG IVPB PRN (19:04)
--- NOTE | 2019-11-03 19:11 | HP ---
REASON FOR ADMISSION: DKA. HISTORY OF PRESENT ILLNESS: The patient gives history of having severe nausea and vomiting from yesterday afternoon. His vomitus was black in color. No ness blood in it. He also checked his blood sugar this morning, it was 455. He took 5 units of Humalog and 22 units of Lantus and checked after 3 hours and it was still more than 450. The patient got concerned and he was unable to eat or drink, came to emergency room. No complaints of cough or expectoration. No complaints of fever. No urinary burning sensation. The patient states he has not knowingly gotten exposed to coronavirus. No fever at home. No cough or expectoration. PAST MEDICAL AND SURGICAL HISTORY: History of diabetes mellitus type 2 with neuropathy. He was diagnosed with diabetes from 1996. No prior surgical history. Prior history of hematemesis in 2018 and upper endoscopy done showed esophagitis. CURRENT MEDICATIONS: Takes Humalog 5 to 7 units subcu three times daily before meals, Lantus 22 units subcu daily. ALLERGIES: NO KNOWN DRUG ALLERGIES. PERSONAL HISTORY: Drinks at least 5 to 6 beers daily. He also drinks a short of one or two shots of gin on his off days. He runs a bar. Does not smoke or abuse drugs. He lives alone. FAMILY HISTORY: Both parents are . He has 2 children, a boy and a girl. No family history of malignancy as far as he knows. CODE STATUS: Full. Power of senior attorney is his daughter, Ms. Jessica Maynard. REVIEW OF SYSTEMS: CONSTITUTIONAL: Negative for weight loss or gain, ability to conduct usual activities. SKIN: Negative for rash, itching. EYES: Negative for double vision, pain. ENT/MOUTH: Negative for nose bleeding, neck stiffness, pain, tenderness. CARDIOVASCULAR: Negative for palpitations, dyspnea on exertion, orthopnea. RESPIRATORY: Negative for shortness of breath, wheezing, cough, hemoptysis, fever or night sweats. GASTROINTESTINAL: Negative for poor appetite, abdominal pain, heartburn, nausea, vomiting, constipation, or diarrhea. GENITOURINARY: Negative for urgency, frequency, dysuria, nocturia. MUSCULOSKELETAL: Negative for pain, swelling. NEUROLOGIC/PSYCHIATRIC: Negative for anxiety, depression. ALLERGY/IMMUNOLOGIC: Negative for skin rash, bleeding tendency. PHYSICAL EXAMINATION: GENERAL: The patient is a 64-year-old male, who is currently not in any acute distress. VITAL SIGNS: Blood pressure 126/60, pulse rate 94 per minute, respiratory rate 20 per minute, temperature 98.1 degrees Fahrenheit, and saturating 98% on room air. NECK: Supple. No elevated JVD. HEENT: Eyes; extraocular muscles are intact. Pupils are reacting to light. Oral cavity, mucous membranes are dry. No exudates or congestion. CARDIOVASCULAR SYSTEM: S1 and S2 heard. Tachycardic. RESPIRATORY SYSTEM: Air entry, 1+ bilateral. No rales or rhonchi. ABDOMEN: Soft. Bowel sounds heard. No tenderness, rigidity, or guarding. EXTREMITIES: No peripheral edema or calf tenderness. VASCULAR SYSTEM: Peripheral pulses 1+ bilateral. No ischemic ulcerations or gangrene. CENTRAL NERVOUS SYSTEM: No gross focal deficits noted. The patient is alert and oriented well. PSYCHIATRIC: The patient's mood is euthymic. No hallucinations or delusions. LABORATORY DATA: White count of 20, H and H 10 and 28, platelet count is 169, MCV is 99 with 62% neutrophils, 33% bands. Serum bicarb is 10, BUN 30, creatinine 1.64, serum glucose 498. LFTs are within normal limits. Albumin is 4.2. Lipase is 10. CLINICAL IMPRESSION AND PLAN: The patient will be admitted to IM for diabetic ketoacidosis, hematemesis with coffee-ground vomitus, intractable nausea and vomiting, severe dehydration. The patient will be on DKA protocol. He is currently on 6 units of regular insulin IV. He has had 1.5 L of IV bolus normal saline done in the ER. He has gotten a dose of Reglan and Protonix 40 mg IV. The patient will be on Protonix 40 mg IV q.12 hourly. We will empirically place him on cefepime and vancomycin due to bandemia. Blood and urine cultures will be obtained. He will be kept n.p.o. except for medications. The patient has history of alcohol abuse and we will place him on folic acid and thiamine for now. If needed, the patient will be placed on ASC protocol. He states he is compliant with his medication. We will closely monitor him in IMCU. We will also consult Dr. Mcgill, who is on-call for Gastroenterology. Serial H and H will also be done. Job ID: [id number]
[2019-11-03] MEDS ORDERED: Vancomycin 1.5 GRAM/300 ML BAG 1.5 GM in Premix Bag 1 BAG IVPB SCH (19:15)
--- NOTE | 2019-11-03 19:36 | CT ---
CT OF THE ABDOMEN AND PELVIS: Date: 11-03-2019 Comparison: None History: Sepsis with nausea and vomiting, assess for perforation. Technique: Axial CT imaging at 5 mm intervals from lung bases through pubic symphysis without contras t. Coronal and sagittal reformatted imaging obtained. FINDINGS: The imaged lung bases are unremarkable. The lack of contrast limits assessment of the viscera bowel v ascular structures and for lymphadenopathy. No free intraperitoneal air is noted. The hepatic parenchyma is hypodense suggesting a degree of steatosis. There is vague hyperdensity wit hin the gallbladder which could signify stones or sludge. Gallbladder is poorly assessed on this exam , however. There is mild wall thickening of the distal esophagus, not well assessed on this examination. The spleen appears grossly unremarkable. The pancreas is not well assessed secondary to atherosclerot ic calcification of the splenic artery, motion, and the lack of contrast media. Adrenal glands appear grossly unremarkable. Neither kidney is obstructed. Evaluation of the kidneys is limited secondary t o motion. Foci of increased density as well as foci of gas noted within the subcutaneous fat anteriorly suggest ing injection changes. There is moderate distention of the urinary bladder. Limited assessment of the bowel without contrast media demonstrates no evidence for bowel obstruction . Motion limits detailed assessment of the bowel as well. Appendix appears grossly unremarkable. There is a suggestion of colonic wall thickening in the region of the cecum, ascending colon, and tra nsverse colon. While a degree of this may be on the basis of under distention, this may signify colit is. There is extensive atherosclerotic calcification of the abdominal aorta and its branches. Review of the osseous structures demonstrates no worrisome lytic or blastic bone lesion. IMPRESSION: Limited examination secondary to motion and lack of contrast. No free intraperitoneal air or evidence of small bowel obstruction. Findings suspicious for colitis noted in the region of the cecum, ascend ing colon, and transverse colon. No evidence for appendicitis. There is distention of urinary bladder. POS: [facility]
[2019-11-03 19:42] LABS: BUN (Urea Nitrogen) 30 mg/dL (8.4-25.7); Calc. Creatinine Clearance 0 mL/min (70-130); Calcium 8.3 mg/dL (7.8-10.44); Chloride 103 mmol/L (98-107); Estimated GFR-MDRD 45; Glucose 487 mg/dL (80-115); Potassium 4.8 mmol/L (3.5-5.1); Sodium 137 mmol/L (136-145)
[2019-11-03 19:44] LABS: Carbon Dioxide Less than 8 mmol/L (23-31)
[2019-11-03 20:11] LABS: Hemoglobin 9.6 g/dL (14.0-18.0)
[2019-11-03] MEDS: NS 0.9% w/ 20 MEQ KCL 1,000 ML IV PRN ×2 (20:28→23:05)
[2019-11-03] MEDS: Pantoprazole 40 MG VIAL IVP SCH (20:54)
[2019-11-03] MEDS ORDERED: Vancomycin HCl 1 GM in Sodium Chloride 0.9% 250 ML 250 ML IVPB SCH (21:00)
[2019-11-03 23:25] LABS: Anion Gap 21 mmol/L (10-20); BUN (Urea Nitrogen) 25 mg/dL (8.4-25.7); Calc. Creatinine Clearance 42 mL/min (70-130); Calcium 7.7 mg/dL (7.8-10.44); Carbon Dioxide 12 mmol/L (23-31); Chloride 112 mmol/L (98-107); Estimated GFR-MDRD 51; Glucose 250 mg/dL (80-115); Potassium 4.3 mmol/L (3.5-5.1); Sodium 141 mmol/L (136-145)
[2019-11-03] MEDS: D5 1/2 NS w/20 mEq KCL 1,000 ML IV PRN (23:31)
[2019-11-04 01:04] LABS: Hemoglobin 8.8 g/dL (14.0-18.0)
[2019-11-04] MEDS: D5 1/2 NS w/20 mEq KCL 1,000 ML IV PRN (03:10)
[2019-11-04 04:55] LABS: Anion Gap 12 mmol/L (10-20); BUN (Urea Nitrogen) 19 mg/dL (8.4-25.7); Calc. Creatinine Clearance 45 mL/min (70-130); Calcium 7.6 mg/dL (7.8-10.44); Carbon Dioxide 19 mmol/L (23-31); Chloride 115 mmol/L (98-107); Estimated GFR-MDRD 55; Glucose 182 mg/dL (80-115); Potassium 3.7 mmol/L (3.5-5.1); Sodium 142 mmol/L (136-145)
[2019-11-04 06:55] LABS: Hemoglobin 9.1 g/dL (14.0-18.0)
[2019-11-04] MEDS: Thiamine 100 MG TAB PO SCH (08:49)
[2019-11-04] MEDS: Folic Acid 1 MG TAB PO SCH (08:49)
[2019-11-04] MEDS: Enoxaparin Sodium 40 MG/0.4 ML SYRINGE SC SCH (08:50)
[2019-11-04] MEDS: Cefepime 1 GM in Sodium Chloride 0.9% 100 ML IVPB SCH ×2 (08:50→19:51)
[2019-11-04] MEDS: Pantoprazole 40 MG VIAL IVP SCH ×2 (08:50→19:51)
[2019-11-04] MEDS ORDERED: Dextrose 50% Abboject 50 ML SYRINGE SLOW IVP PRN (09:24)
[2019-11-04] MEDS ORDERED: Insulin Glargine 15 UNITS in Pre-Filled Syringe 1 EACH SC SCH (09:24)
[2019-11-04] MEDS ORDERED: Dextrose 5% in Water 1,000 ML IV PRN (09:24)
[2019-11-04] MEDS ORDERED: HumaLOG 300 UNITS/3 ML VIAL SC PRN ×2 (09:24)
[2019-11-04 11:47] VITALS: BMI 19.2
--- NOTE | 2019-11-04 14:06 | CON ---
DATE OF CONSULTATION: 11/04/2019 REQUESTING PHYSICIAN: Ale Velasco MD REASON FOR CONSULTATION: Nausea and vomiting, possible GI bleed. HISTORY OF PRESENT ILLNESS: Costa Alcantar is a very pleasant 64-year-old man with history of diabetes on insulin. He was seen by my colleague, Dr. Johnson, during hospitalization back in August 2017 with diabetic ketoacidosis. EGD at that time showed only LA grade C erosive esophagitis, for which he was treated with a PPI. The patient has never undergone colonoscopy. He has no chronic gastrointestinal symptoms. He says he was in his normal state of health until yesterday afternoon. At that time, he had a fairly acute onset of severe nausea and multiple episodes of emesis. He says he threw up 4 or 5 times through last night. His emesis was very dark brown per him. There was no ness hematemesis. He has had one bowel movement during all this and he says it was light brown in color. He was having some associated abdominal pain and presented for evaluation. He was found to be in diabetic ketoacidosis with beta-hydroxybutyrate elevated to 10.24, bicarb level only 8. He was treated with insulin and IV fluids, received a dose of Reglan and was also started on Protonix. Today, he has had no further vomiting. His nausea has resolved. He is not having any abdominal pain. He has remained hemodynamically stable. He says he is feeling a lot better and tolerating clear liquids. He did have a leukocytosis on presentation, so he was started on broad-spectrum antibiotics with cultures pending. REVIEW OF SYSTEMS: Full review of systems including constitutional, head, eyes, ears, nose, throat, GI, , cardiovascular, respiratory, musculoskeletal, and neurologic systems is negative except as noted in the HPI. PAST MEDICAL HISTORY: Diabetes type 2 with neuropathy on insulin, esophagitis in 2018. ALLERGIES: NO KNOWN DRUG ALLERGIES. MEDICATIONS: 1. Humalog 5 to 7 units subcutaneously 3 times daily before meals. 2. Lantus 22 units subcutaneously daily. SOCIAL HISTORY: The patient does drink 5 or 6 beers per day. No smoking or drug abuse. FAMILY HISTORY: Negative for malignancy. PHYSICAL EXAMINATION: VITAL SIGNS: Temperature 97.6, pulse 78, blood pressure 130/68, and oxygen saturation 97% on room air. GENERAL: A 64-year-old man, lying in bed comfortably, in no distress. SKIN: No jaundice. No rashes were palpable. EYES: No scleral icterus. Extraocular movements intact. ENT: Mucous membranes moist. No oral lesions. LYMPH: No submandibular or supraclavicular lymphadenopathy. THYROID: Nontender to palpation. HEART: Regular rate and rhythm. LUNGS: Clear to auscultation bilaterally. ABDOMEN: Nondistended. Bowel sounds present. Soft and nontender to palpation throughout. EXTREMITIES: No peripheral edema. LABORATORY STUDIES: Hemoglobin 9.1, WBC 20.7, platelets 169, and MCV 99. Sodium 142, potassium 3.7, BUN 19, creatinine 1.3, glucose 144, total bilirubin 1.1, alkaline phosphatase 56, AST 19, ALT 14, albumin 4.2, and lipase 10. CK 134. Beta-hydroxybutyrate initially 10.24, declines to 5.94. IMAGING STUDIES: CT of the abdomen and pelvis without contrast was performed. This demonstrated some possible thickening in the area of the cecum, ascending colon, and transverse colon, but no free air. There is fatty liver. Gallbladder and pancreas are not well visualized. Spleen appears normal. Appendix appears normal. ASSESSMENT AND PLAN: 1. Nausea and vomiting, resolved today with treatment of diabetic ketoacidosis. 2. Coffee-ground emesis, this was suspected on initial presentation, resolved today. 3. History of esophagitis, seen on EGD in 2018. 4. Anemia. The patient's symptoms were all acute in the context of diabetic ketoacidosis. He may indeed have some recurrent esophagitis from all of his emesis yesterday, but I doubt any other significant GI pathology. There was no evidence of significant gastrointestinal acute bleeding at this time. We did discuss that he is anemic, which is a macrocytic anemia. We are not going to plan on any endoscopy at this time. I would recommend having him on a PPI for 1 to 2 weeks, and having him follow up in the outpatient GI Clinic with Dr. Johnson in the next few weeks, for discussion of possible outpatient colon cancer screening exam. From a GI standpoint, his diet could be advanced. GI will sign off, but please call back anytime with questions or concerns. Job ID: [id number]
--- NOTE | 2019-11-04 15:34 | PDOC.HOSPP ---
- Subjective Encounter Date: 11/04/19 Encounter Time: 11:00 Subjective: no abd pain or nausea feels better no sob - Objective Vital Signs & Weight: Vital Signs (12 hours) Temp Pulse Resp BP Pulse Ox 11/04/19 11:33 97 11/04/19 11:25 97.6 F 78 18 130/68 97 11/04/19 11:01 99.2 F 11/04/19 07:51 100 11/04/19 07:19 98.7 F 11/04/19 03:39 99.2 F Weight Admit Weight 126 lb 8 oz Weight 134 lb 4 oz Most Recent Monitor Data Heart Rate from ECG 76 NIBP 129/71 NIBP BP-Mean 90 Respiration from ECG 11 SpO2 100 I&O: 11/03/19 11/04/19 11/05/19 06:59 06:59 06:59 Intake Total 2000 1000 Output Total 1200 250 Balance 800 750 Result Diagrams: 11/04/19 06:45 11/04/19 03:17 Additional Labs: Accuchecks 11/04/19 11/04/19 11/04/19 10:22 09:28 08:17 POC Glucose 140 H 152 H 148 H 11/04/19 11/04/19 11/04/19 07:05 06:02 05:07 POC Glucose 138 H 144 H 168 H 11/04/19 11/04/19 11/04/19 04:02 02:59 02:03 POC Glucose 187 H 197 H 204 H 11/04/19 11/03/19 11/03/19 01:00 23:59 23:07 POC Glucose 217 H 205 H 229 H 11/03/19 11/03/19 11/03/19 22:07 21:19 20:05 POC Glucose 282 H 338 H 408 H 11/03/19 11/03/19 11/03/19 19:09 18:39 18:04 POC Glucose 488 H 483 H 462 H 11/03/19 17:03 POC Glucose 452 H Hospitalist ROS - Medication Medications: Active Medications Generic Name Dose Route Start Last Admin Trade Name Freq PRN Reason Stop Dose Admin Enoxaparin Sodium 40 mg 11/04/19 09:00 11/04/19 08:50 Lovenox SC 40 mg 09 NICK Administration Folic Acid 1 mg 11/04/19 09:00 11/04/19 08:49 Folvite PO 1 mg DAILY NICK Administration Cefepime HCl 1 gm/ Sodium 100 mls @ 200 mls/hr 11/04/19 09:00 11/04/19 08:50 Chloride IVPB 100 mls Q12HR NICK Administration Pantoprazole Sodium 40 mg 11/03/19 21:00 11/04/19 08:50 Protonix IVP 40 mg Q12HR NICK Administration Thiamine HCl 100 mg 11/04/19 09:00 11/04/19 08:49 Thiamine PO 100 mg DAILY NICK Administration - Exam General Appearance: awake alert Eye: PERRL, anicteric sclera ENT: no oropharyngeal lesions, dry oral mucosa Neck: supple, no JVD Heart: RRR, no murmur Respiratory: no wheezes, no rales Gastrointestinal: soft, non-tender, non-distended, normal bowel sounds Extremities: no cyanosis, no edema Neurological: cranial nerve grossly intact, no focal deficits Psychiatric: normal affect, A&O x 3 Hosp A/P (1) DKA, type 2 Code(s): E11.10 - TYPE 2 DIABETES MELLITUS WITH KETOACIDOSIS WITHOUT COMA Status: Acute Qualifiers: Diabetes mellitus complication detail: without coma Qualified Code(s): E11.10 - Type 2 diabetes mellitus with ketoacidosis without coma (2) Intractable nausea and vomiting Code(s): R11.2 - NAUSEA WITH VOMITING, UNSPECIFIED Status: Resolved (3) Anemia Code(s): D64.9 - ANEMIA, UNSPECIFIED Status: Chronic Qualifiers: Anemia type: iron deficiency (4) GI bleed Code(s): K92.2 - GASTROINTESTINAL HEMORRHAGE, UNSPECIFIED Status: Resolved Qualifiers: GI bleed type/associated pathology: unspecified gastrointestinal hemorrhage type Qualified Code(s): K92.2 - Gastrointestinal hemorrhage, unspecified - Plan dka is resolving dc dka protocol lantus one dose now and qam iv fluids, oral diet h/h is stable, no GI work up, d/w Dr.Case elkins plan in 24hrs
[2019-11-04] MEDS: Sodium Chloride 0.9% 1,000 ML IV SCH (16:51)
[2019-11-04] MEDS ORDERED: Vancomycin 1 GM in Premix Bag 1 BAG IVPB SCH (21:00)
[2019-11-05] MEDS: Sodium Chloride 0.9% 1,000 ML IV SCH ×2 (04:55→11:10)
[2019-11-05 06:42] LABS: Anion Gap 12 mmol/L (10-20); BUN (Urea Nitrogen) 7 mg/dL (8.4-25.7); Calc. Creatinine Clearance 75 mL/min (70-130); Calcium 7.5 mg/dL (7.8-10.44); Carbon Dioxide 21 mmol/L (23-31); Chloride 111 mmol/L (98-107); Estimated GFR-MDRD Greater than 90; Glucose 195 mg/dL (80-115); Potassium 3.5 mmol/L (3.5-5.1); Sodium 140 mmol/L (136-145)
[2019-11-05] MEDS: Folic Acid 1 MG TAB PO SCH (08:46)
[2019-11-05] MEDS: Thiamine 100 MG TAB PO SCH (08:47)
[2019-11-05] MEDS: Enoxaparin Sodium 40 MG/0.4 ML SYRINGE SC SCH (08:47)
[2019-11-05] MEDS: Pantoprazole 40 MG VIAL IVP SCH (08:48)
[2019-11-05] MEDS ORDERED: Insulin Glargine 20 UNITS in Pre-Filled Syringe 1 EACH SC SCH (09:00)
[2019-11-05] MEDS ORDERED: Insulin Glargine 10 UNITS in Pre-Filled Syringe 1 EACH SC SCH (09:00)
[2019-11-05 11:34] VITALS: BP 147/72; TEMP 98.4
--- NOTE | 2019-11-05 16:49 | DIS ---
DATE OF ADMISSION: 11/03/2019 DATE OF DISCHARGE: 11/05/2019 DISCHARGE DISPOSITION: Home. PRIMARY DISCHARGE DIAGNOSES: Diabetic ketoacidosis with type 2 diabetes, which is insulin dependent; severe dehydration on arrival, resolved; intractable nausea and vomiting, resolved; coffee-grounds emesis with stable H and H; iron deficiency anemia; acute kidney injury. PROCEDURES DONE DURING HOSPITALIZATION: CT stone protocol of the abdomen and pelvis done showed no free intraperitoneal air or evidence of small bowel obstruction. Findings are suspicious for colitis in the region of cecum, ascending colon, and transverse colon. No evidence of appendicitis. There is distention of urinary bladder incidentally noted. Urine culture was contaminated with mixed wade. White count of 20 on the day of admission with H and H of 9 and 25 on the day of discharge. Platelet count 169, BUN 7, creatinine 0.8 on the day of discharge. Serum bicarb 21 on the day of discharge. Admitting BUN and creatinine were 30 and 1.64. Beta-hydroxybutyrate levels were 10.24 on the day of admission. DISCHARGE MEDICATIONS: 1. Lantus 15 units subcu at bedtime. 2. Protonix 40 mg twice daily for 30 days. 3. Thiamine 100 mg p.o. daily. 4. Humalog sliding scale as before three times daily before meals. 5. Folic acid 1 mg p.o. daily. 6. Ferrous sulfate 325 mg p.o. twice daily. 7. Keflex 500 mg p.o. three times daily for 5 days for small abscesses over the multiple fingers and hand. ALLERGIES: NO KNOWN DRUG ALLERGIES. DISCHARGE PLAN: The patient to follow up with his primary care physician in [place], [place] at [facility] in 1 week. The patient is advised to check fingerstick glucose twice daily and record for 10 days for changes in his medication. BRIEF COURSE DURING HOSPITALIZATION: The patient initially got admitted on the after having severe intractable nausea and vomiting and elevated blood sugars of more than 500. The patient is a type 2 diabetic, who is insulin dependent. In view of this history, the patient was admitted to [facility] and was placed on IV insulin under DKA protocol. Aggressive fluid hydration was done. He was empirically placed on antibiotics initially due to bandemia seen on the CBC with 33% bands seen. He also had a white count of 20 on the day of admission. The patient did not show any features of sepsis, but was placed on broad-spectrum IV antibiotics, which has been changed to Keflex at the time of discharge for multiple small abscesses on the fingers, which are less than half a centimeter. He was later downgraded to medical floor and was placed on his home regimen of Lantus and Humalog coverage. Prior to discharge, he was tolerating oral solid diet and is ambulating well. Mr. Alcantar has history of drinking at least 5 to 6 beers and was counseled with regard to complete cessation of alcohol. He was also advised to check fingerstick glucose twice daily and record for 10 days for changes in his medications. Please note, I have seen and examined the patient on the day of discharge. Job ID: [id number]
--- NOTE | 2019-11-06 15:43 | PQF ---
KEE MEDRANO, MINE MOCK MD [id number] CLINICAL DOCUMENTATION IMPROVEMENT CLARIFICATION FORM: ICD-10 Updated PLEASE DO AN ADDENDUM TO THE PROGRESS NOTE WITH ANY DOCUMENTATION UPDATES OR ADDITIONS AND CARRY THROUGH TO DC SUMMARY. THANK YOU. DATE: 11/06/2019 ATTN: Dr. Velasco Please exercise your independent, professional judgment in responding to the clarification form. Clinical indicators are provided on the bottom of this form for your review Please check appropriate box(s): [ x ] SIRS with STEPHANIE due to Non-infectious process (please specify): [ x ] DKA [ x ] Severe Dehydration [ ] Other: [ ] SIRS without organ dysfunction due to Non-infectious process (please specify): [ ] DKA [ ] Severe Dehydration [ ] Other: [ ] No SIRS [ ] Other diagnosis [ ] Unable to determine For continuity of documentation, please document condition throughout progress notes and discharge summary. Thank You. CLINICAL INDICATORS - SIGNS / SYMPTOMS / LABS / RESULTS AND LOCATION IN *ED 11/02: * Initial blood sugar was 510 per EMS. * Vital Signs: Pulse 95-112 *[facility] * Diabetic ketoacidosis, hematemesis with coffee-ground vomitus, intractable nausea and vomiting, severe dehydration. * White count of 20 ... 33% bands ... creatinine 1.64 *DC Summary 11/04 ([facility]): STEPHANIE RISK FACTORS / RESULTS AND LOCATION IN *H&P 11/02 ([facility]): Diabetic ketoacidosis, hematemesis with coffee-ground vomitus, intractable nausea and vomiting, severe dehydration. TREATMENT / RESULTS AND LOCATION IN *ED 11/03: Novolin R IV, NS 1.5L IV, Protonix IV, Reglan IV, Promethazine IV *Order (EMR): Admit IMCU *MAR (EMR): NS IV 100ml/h 11/03-11/04 *H&P 11/03 ([facility]rista): DKA protocol ... 1.5 L of IV bolus NS done in the ER ... We will empirically place him on cefepime and vancomycin due to bandemia. Blood and urine cultures will be obtained. Thank you, Rossy (This form is maintained as a part of the permanent medical record) 2015 [employer]. All Rights Reserved Rossy Crystal RN, CDS [email or web address] cell phone: [email or web address]
== END 2019-11-05 14:28 | disposition home or self-care (01) | DRG 637 ==
LOC: ERS 16:46 → IMCU/EMU 18:22 → T4-A 11-04 11:22
PROVIDERS: ADMIT Internal Medicine; ATTEND Internal Medicine
DX: E11.10 Type 2 diabetes mellitus with ketoacidosis without coma (principal); R65.11 Systemic inflammatory response syndrome (SIRS) of non-infectious origin with acute organ dysfunction; K92.2 Gastrointestinal hemorrhage, unspecified; N17.9 Acute kidney failure, unspecified; L02.519 Cutaneous abscess of unspecified hand; E11.40 Type 2 diabetes mellitus with diabetic neuropathy, unspecified; E86.0 Dehydration; D50.9 Iron deficiency anemia, unspecified; Z79.4 Long term (current) use of insulin
CPT/HCPCS: 36415; 36416; 74176; 80048; 80053; 82010; 82550; 83690; 85014; 85018; 85025; 86850; 86900; 86901; 87086; 96365; 96367; 96375; C9113; J0692; J1650; J1815; J2550; J2765; J3370; J3480; J3490

== ENCOUNTER 2019-11-26 12:04 | Emergency (ER) | payer MEDICARE ==
--- NOTE | 2019-11-26 12:54 | RAD ---
EXAM: Single view of the chest HISTORY: Sepsis COMPARISON: 09/10/2017 FINDINGS: Single view of the chest shows a normal sized cardiomediastinal silhouette. There is no michael dence of consolidation, mass, or pleural effusion. The bones are unremarkable. IMPRESSION: No evidence of acute cardiopulmonary disease
[2019-11-26 13:06] LABS: #Basophils 0.1 thou/uL (0.0-0.2); #Eosinphils 0.1 thou/uL (0.0-0.7); #Lymphocytes 1.1 thou/uL (1.20-3.40); #Monocytes 0.5 thou/uL (0.11-0.59); #Neutrophils 6.4 thou/uL (1.40-6.50); %Basophils 0.6 % (0.0-1.0); %Eosinophils 1.4 % (0.0-10.0); %Lymphocytes 13.2 % (21.0-51.0); %Monocytes 5.9 % (0.0-10.0); Hemoglobin 11.2 g/dL (14.0-18.0); Mean Corpuscular HGB CONC 34.1 g/dL (32.0-36.0); Mean Corpuscular Hemoglobin 32.9 pg (27.0-31.0); Mean Corpuscular Volume 96.6 fL (78.0-98.0); Mean Platelet Volume 8.3 fL (7.4-10.4); Platelet Count 175 thou/uL (130-400); RBC Distribution Width 10.7 % (11.5-14.5); Red Blood Cell (RBC) Count 3.39 mill/uL (4.70-6.10); White Blood Cell (WBC) Count 8.1 thou/uL (4.8-10.8)
[2019-11-26 13:33] LABS: ALT (SGPT) 28 U/L (8-55); AST (SGOT) 32 U/L (5-34); Albumin 4.4 g/dL (3.4-4.8); Alkaline Phosphatase 66 U/L (40-110); Anion Gap 15 mmol/L (10-20); BUN (Urea Nitrogen) 34 mg/dL (8.4-25.7); Bilirubin, Total 0.8 mg/dL (0.2-1.2); CK (CPK) 51 U/L (30-200); Calc. Creatinine Clearance 0 mL/min (70-130); Calcium 9.2 mg/dL (7.8-10.44); Carbon Dioxide 24 mmol/L (23-31); Chloride 101 mmol/L (98-107); Estimated GFR-MDRD 45; Globulin 2.8 g/dL (2.4-3.5); Glucose 338 mg/dL (80-115); Lipase 15 U/L (8-78); Potassium 4.3 mmol/L (3.5-5.1); Protein, Total 7.2 g/dL (5.8-8.1); Sodium 136 mmol/L (136-145)
== END 2019-11-26 14:38 | disposition home or self-care (01) ==
LOC: ERS 12:04
DX: E11.65 Type 2 diabetes mellitus with hyperglycemia (principal); E86.0 Dehydration; E11.40 Type 2 diabetes mellitus with diabetic neuropathy, unspecified; Z79.4 Long term (current) use of insulin
CPT/HCPCS: 36416; 71045; 80053; 82010; 82550; 83690; 83880; 84484; 85025; 85379; 93005

== ENCOUNTER 2020-11-22 10:55 | Observation (INO) | payer MEDICARE ==
[2020-11-22 11:35] LABS: Actual Bicarbonate (HCO3v) 20 mEq/L (22-28); Analyzer IN Cardio ER; Base Excess -5.5 mEq/L (-2.0 to +3.0); Calcium, Ionized (venous) 1.15 mmol/L (1.16-1.32); Chloride (VBG) 91 mmol/L (98-106); Hemoglobin (Hb) 12.2 g/dL (12.6-17.4); Potassium (VBG) 4.76 mmol/L (3.70-5.30); Sodium 128.7 mmol/L (133-146); pH (venous) 7.32 (7.32-7.43)
[2020-11-22 11:40] LABS: #Lymphocytes 1.5 thou/uL (1.20-3.40); #Neutrophils 14.2 thou/uL (1.40-6.50); %Basophils 0.2 % (0.0-1.0); %Eosinophils 0.2 % (0.0-10.0); %Monocytes 5.9 % (0.0-10.0); %Neutrophils 84.7 % (42.0-75.0); Hemoglobin 11.7 g/dL (14.0-18.0); Mean Corpuscular HGB CONC 36.2 g/dL (32.0-36.0); Mean Corpuscular Hemoglobin 35.1 pg (27.0-31.0); Mean Corpuscular Volume 97.1 fL (78.0-98.0); Mean Platelet Volume 7.5 fL (7.4-10.4); Platelet Count 187 thou/uL (130-400); RBC Distribution Width 10.7 % (11.5-14.5); Red Blood Cell (RBC) Count 3.33 mill/uL (4.70-6.10); White Blood Cell (WBC) Count 16.7 thou/uL (4.8-10.8)
[2020-11-22 12:03] LABS: ALT (SGPT) 12 U/L (8-55); AST (SGOT) 14 U/L (5-34); Albumin 4.6 g/dL (3.4-4.8); Alkaline Phosphatase 63 U/L (40-110); Anion Gap 28 mmol/L (10-20); BUN (Urea Nitrogen) 34 mg/dL (8.4-25.7); Bilirubin, Total 0.9 mg/dL (0.2-1.2); Calc. Creatinine Clearance 0 mL/min (70-130); Calcium 9.9 mg/dL (7.8-10.44); Chloride 91 mmol/L (98-107); Globulin 3.5 g/dL (2.4-3.5); Glucose 398 mg/dL (80-115); Lipase 13 U/L (8-78); Magnesium 1.8 mg/dL (1.6-2.6); Potassium 4.8 mmol/L (3.5-5.1); Protein, Total 8.1 g/dL (5.8-8.1); Sodium 130 mmol/L (136-145)
[2020-11-22 12:14] LABS: Carbon Dioxide 16 mmol/L (23-31)
[2020-11-22] MEDS ORDERED: Insulin Regular 300 UNITS/3 ML VIAL ONE (12:42)
[2020-11-22 13:08] LABS: Bacteria/HPF None Seen HPF (None Seen); Bilirubin Negative (Negative); Blood, Urine Trace (Negative); Clarity Clear (Clear); Glucose, Urine (Dipstick) Greater than 1000 mg/dL (Negative); Ketone, Urine 60 mg/dL (Negative); Leukocyte Negative Leu/uL (Negative); Nitrite Negative (Negative); Protein, Urine (Dipstick) Negative (Neg-Trace); RBC/HPF 0-3 HPF (0-3); Specific Gravity, Urine 1.018 (1.002-1.036); Squamous Epithelial 0-3 HPF (0-3); Urobilinogen Normal mg/dL (Less than 2); WBC/HPF 0-3 HPF (0-3)
[2020-11-22] MEDS ORDERED: Ondansetron ODT 4 MG TAB PO PRN (14:02)
[2020-11-22] MEDS ORDERED: Ondansetron PF 4 MG/2 ML Vial IVP PRN (14:02)
[2020-11-22] MEDS ORDERED: Acetaminophen 650 MG Suppository PR PRN (14:02)
[2020-11-22] MEDS ORDERED: Acetaminophen 325 MG TAB PO PRN (14:02)
[2020-11-22] MEDS ORDERED: Magnesium 2 GM/50 ML 2 GM in Premix Bag 1 BAG IVPB SCH (14:15)
[2020-11-22] MEDS: Sodium Chloride 0.9% 1,000 ML IV SCH (15:17)
[2020-11-22] MEDS ORDERED: Dextrose 5% in Water 1,000 ML IV PRN (16:25)
[2020-11-22] MEDS ORDERED: Insulin Regular 300 UNITS/3 ML VIAL SC PRN ×2 (16:25)
[2020-11-22] MEDS ORDERED: Dextrose 50% Abboject 50 ML SYRINGE SLOW IVP PRN (16:25)
[2020-11-22] MEDS ORDERED: Metoclopramide HCl 10 MG/2 ML VIAL IVP PRN (19:14)
[2020-11-22] MEDS ORDERED: diphenhydrAMINE 25 MG CAP PO SCH (19:15)
[2020-11-22] MEDS ORDERED: Lantus 1000 UNITS/10 ML VIAL SC SCH (21:00)
[2020-11-23] MEDS: Sodium Chloride 0.9% 1,000 ML IV SCH (05:44)
[2020-11-23 06:40] LABS: #Basophils 0.1 thou/uL (0.0-0.2); #Eosinphils 0.1 thou/uL (0.0-0.7); #Lymphocytes 1.8 thou/uL (1.20-3.40); #Monocytes 0.7 thou/uL (0.11-0.59); #Neutrophils 6.6 thou/uL (1.40-6.50); %Basophils 0.6 % (0.0-1.0); %Lymphocytes 19.3 % (21.0-51.0); %Monocytes 7.4 % (0.0-10.0); %Neutrophils 71.6 % (42.0-75.0); Hemoglobin 11.1 g/dL (14.0-18.0); Mean Corpuscular HGB CONC 34.4 g/dL (32.0-36.0); Mean Corpuscular Hemoglobin 33.4 pg (27.0-31.0); Mean Platelet Volume 7.2 fL (7.4-10.4); Platelet Count 167 thou/uL (130-400); RBC Distribution Width 10.8 % (11.5-14.5); Red Blood Cell (RBC) Count 3.31 mill/uL (4.70-6.10); White Blood Cell (WBC) Count 9.2 thou/uL (4.8-10.8)
[2020-11-23 07:01] LABS: Anion Gap 14 mmol/L (10-20); BUN (Urea Nitrogen) 13 mg/dL (8.4-25.7); Calc. Creatinine Clearance 52 mL/min (70-130); Calcium 8.8 mg/dL (7.8-10.44); Carbon Dioxide 24 mmol/L (23-31); Chloride 102 mmol/L (98-107); Glucose 81 mg/dL (80-115); Potassium 3.5 mmol/L (3.5-5.1); Sodium 136 mmol/L (136-145)
[2020-11-23] MEDS ORDERED: Lantus 1000 UNITS/10 ML VIAL SC SCH (09:00)
[2020-11-23] MEDS ORDERED: Thiamine 100 MG TAB PO SCH (09:00)
[2020-11-23] MEDS ORDERED: Folic Acid/Vit B Comp W-C PO SCH (09:00)
[2020-11-23 14:12] VITALS: BMI 17.7
[2020-11-23 15:17] VITALS: BP 168/80; TEMP 97.6
== END 2020-11-23 15:36 | disposition home or self-care (01) ==
LOC: ERS 10:55 → T4-A 13:06
PROVIDERS: ADMIT Family Medicine; ATTEND Internal Medicine
DX: N17.9 Acute kidney failure, unspecified (principal); E86.0 Dehydration; I10 Essential (primary) hypertension; E78.5 Hyperlipidemia, unspecified; E11.9 Type 2 diabetes mellitus without complications; F10.10 Alcohol abuse, uncomplicated; Z79.4 Long term (current) use of insulin; Z88.8 Allergy status to other drugs, medicaments and biological substances
CPT/HCPCS: 71045; 80048; 80053; 82010; 82805; 82962 ×2; 83690; 83735; 83930; 85025 ×2; 87040; 87086; 93005; 96365; 96375; G0378 ×3; 36415; 36416; 81003; 81015; J1815; J2405; J3475; Q0163